=== PATIENT | female | born 1980 | race American Indian/Alaskan Native ===

== ENCOUNTER 2019-06-20 09:46 | Emergency (ER) | payer MEDICAID ==
[2019-06-20 09:52] VITALS: BP 118/65
--- NOTE | 2019-06-20 10:42 | Emergency Department Report ---
Minor Respiratory - HPI Chief Complaint: Upper Respiratory Infection Stated Complaint: FLU SYM, 28 WKS PREG Time Seen by Provider: 06/20/19 10:25 Duration: 1 Day Severity: mild Minor Respiratory: Yes Rhinorrhea, Yes Able to Tolerate Fluids, Yes Cough, Yes Sick Contacts (son with Inf A), Yes Fever, No Sore Throat, No Ear Pain, No Hemoptysis, No Chest Pain, No Shortness of Breath Other History: This is a 38-year-old female at 28 weeks gestation and presents to ED complaining of flulike symptoms and exposure with son who was diagnosed yesterday at the hand stapler for type a is a virus. Patient states that she did not received a flu vaccination this season. She is followed by [facility] and receives care. Patient was seen this morning by her the OBGYN ED Review of Systems ROS: Stated complaint: FLU SYM, 28 WKS PREG Other details as noted in HPI Comment: All other systems reviewed and negative ED Past Medical Hx - Past Medical History Hx Hypertension: No Hx Congestive Heart Failure: No Hx Diabetes: No Hx Deep Vein Thrombosis: No Hx Renal Disease: No Hx Sickle Cell Disease: No Hx Seizures: No Hx Asthma: No Hx COPD: No Hx HIV: No - Social History Smoking Status: Never Smoker - Medications Home Medications: Home Medications Medication Instructions Recorded Confirmed Last Taken Type Pnv,Calcium 72/Iron/Folic Acid 1 tab PO DAILY 07/31/13 08/10/13 08/09/13 History [Pnv Plus Multivit Tab] Oseltamivir [Tamiflu] 75 mg PO QDAY #7 capsule 06/20/19 Unknown Rx Minor Respiratory Exam - Exam General: Vital signs noted. No distress. Alert and acting appropriately. HEENT: Yes Moist Mucous Membranes, No Pharyngeal Erythema, No Pharyngeal Exudates, No Rhinorrhea, No Conjuctival Injection, No Frontal Tenderness, No Maxillary Tenderness Ear: Neither TM Bulge, Neither TM Erythema, Neither EAC Pain, Neither EAC Discharge Neck: Yes Supple, No Adenopathy Lungs: Yes Good Air Exchange, No Wheezes, No Ronchi, No Stridor, No Cough, No Labored Respirations, No Retractions, No Use of Accessory Muscles, No Other Abnormal Lung Sounds Heart: Yes Regular, No Murmur Abdomen: Yes Normal Bowel Sounds, No Tenderness, No Peritoneal Signs Skin: No Rash, No Edema Neurologic: Alert and oriented, no deficits. Musculoskeletal: Unremarkable. ED Course Vital Signs 06/20/19 09:50 Temperature 100.0 F H Pulse Rate 113 H Respiratory 16 Rate Blood Pressure 118/65 O2 Sat by Pulse 99 Oximetry ED Medical Decision Making - Medical Decision Making 38-year-old female presents with flulike symptoms. Patient will be treated with Tamiflu. Patient did see her [facility] this morning and was cleared. Vital signs are normalized patient is in no acute distress. Discussed Tylenol every 6 hours for fever and Tylenol products for cold and flu. Critical care attestation.: If time is entered above; I have spent that time in minutes in the direct care of this critically ill patient, excluding procedure time. ED Disposition Clinical Impression: Flu-like symptoms, Viral syndrome Disposition: TO HOME OR SELFCARE Is pt being admited?: No Does the pt Need Aspirin: No Condition: Stable Instructions: Viral Syndrome (ED) Additional Instructions: Make sure to follow up with the [facility] as discussed. Take all your medications as you've been prescribed. If you have any worsening symptoms or develop new symptoms please return to ED immediately. Prescriptions: Oseltamivir [Tamiflu] 75 mg PO QDAY #7 capsule Referrals: PRIMARY CARE, [Primary Care Provider] - 3-5 Days Forms: Work/School Release Form(ED) Time of Disposition: 10:48
== END 2019-06-20 11:24 | disposition home or self-care (01) ==
LOC: ED 09:46
DX: O99.513 Diseases of the respiratory system complicating pregnancy, third trimester (principal); J11.1 Influenza due to unidentified influenza virus with other respiratory manifestations; B34.9 Viral infection, unspecified; Z3A.28 28 weeks gestation of pregnancy
CPT/HCPCS: 99282

== ENCOUNTER 2019-08-08 10:41 | Inpatient (IN) | payer MEDICAID ==
[2019-08-08] MEDS: BETAMET ACET/BETAMET NA PH 6 MG/ML INJ 5 ML MDV IM SCH (14:00)
[2019-08-08] MEDS ORDERED: ACETAMINOPHEN 325 MG TAB PO PRN (16:52)
[2019-08-08] MEDS ORDERED: DOCUSATE SODIUM 100 MG CAP PO PRN (16:52)
--- NOTE | 2019-08-08 17:18 | History and Physical Report ---
History of Present Illness Date of examination: 08/08/19 Date of admission: 08/08/2019 Chief complaint: Sent from [facility] for continuous monitoring and administration of steroids History of present illness: 39 yo G 2 P 1 0 0 1 @ 35 weeks 1 day here from [facility] for prolonged monitoring and administration of corticosteroids. She was evaluated today and had a BPP of 8/10 and NR NST. She is a [facility] patient who initiated care at 19 weeks gestation. Her care is co-managed [facility] secondary to AMA, +NIPT for Trisomy 21 and cardiac defects. She was referred to [facility] for consultation. Her care has also been complicated by late entry to care, anemia (on iron therapy) and vitamin D deficiency (was supplemented). LABS: O pos, Antibody Screen neg, RI, VDRL NR, HBsAg neg, HIV neg, GC/CT/Trich neg, , HSV II neg, MSAFP neg OSB, Diabetes Screen 116, GBS done (result pending). Past History Past Medical History: other (blood transfusion) [employer] History: trichomonas, other (endometriosis) Family/Genetic History: none Social history: single, lives with family, full code. denies: smoking, alcohol abuse, prescription drug abuse, IV drug use - Obstetrical History Expected Date of Delivery: 09/11/19 Actual Gestation: 35 Week(s) 1 Day(s) : 2 Para: 1 Hx # Term Pregnancies: 0 Number of Pregnancies: 0 Spontaneous Abortions: 0 Induced : 0 Number of Living Children: 1 #1 Infant Gender: Male year: 2,014 (08/10/2011) Birthweight: 2.693 kg ((5 lbs 16 oz)) Method of Delivery: Vaginal Complications: none Medications and Allergies Allergies Allergy/AdvReac Type Severity Reaction Status Date / Time No Known Allergies Allergy Verified 08/07/13 19:36 Home Medications Medication Instructions Recorded Confirmed Last Taken Type Pnv,Calcium 72/Iron/Folic Acid 1 tab PO DAILY 07/31/13 08/10/13 08/09/13 History [Pnv Plus Multivit Tab] Oseltamivir [Tamiflu] 75 mg PO QDAY #7 capsule 06/20/19 Unknown Rx Active Meds: Active Medications Acetaminophen (Tylenol) 650 mg PO Q4H PRN PRN Reason: Pain MILD(1-3)/Fever >100.5/HUSSEIN Betamethasone Acet/Betameth SodPhos (Celestone Soluspan) 12 mg IM Q24HR TERA Stop: 08/09/19 10:01 Last Admin: 08/08/19 14:00 Dose: 12 mg Documented by: Docusate Sodium (Colace) 100 mg PO Q12H PRN PRN Reason: Constipation Multivitamins/Iron/Calcium ( Vitamin) 1 each PO QDAY TERA Review of Systems All systems: negative - Vital Signs Vital signs: Vital Signs Pulse Pulse Ox 79 97 08/08/19 11:01 08/08/19 11:01 Temp Pulse Resp BP Pulse Ox 98.4 F 110 H 14 133/67 96 08/08/19 11:20 08/08/19 17:05 08/08/19 11:20 08/08/19 16:36 08/08/19 17:05 - Obstetrical FHR: category 2 FHR comments: baseline 135, moderate variability with periods of prolonged minimal to absent variability, 10x10 accels, no decels Uterine Contraction Monitor Mode: External Uterine Contraction Pattern: Absent Results All other labs normal. Assessment and Plan - Patient Problems (1) 35 weeks gestation of Current Visit: Yes Status: Acute (2) Abnormal test Current Visit: Yes Status: Acute Plan to address problem: Admit to L&D for 23-hour Observation Continuous EFM Celestone series initiated Anticipate discharge 08/09/19 after second dose of Celestone and patient to f/u with [facility] on 08/12/2019 (3) IUGR (intrauterine growth restriction) affecting care of mother Current Visit: Yes Status: Acute Qualifiers: Fetus number: single or unspecified fetus Trimester: third trimester Qualified Code(s): O36.5930 - Maternal care for other known or suspected poor growth, third trimester, not applicable or unspecified Plan to address problem: EFW at 2104 grams on 08/07/19 per [facility] report (4) Advanced maternal age in multigravida Current Visit: Yes Status: Acute Qualifiers: Trimester: third trimester Qualified Code(s): O09.523 - Supervision of elderly multigravida, third trimester (5) heart defect Current Visit: Yes Status: Acute Plan to address problem: Large VSD - s/p [facility] Neonatology consult initiated - spoke with Buffy Rivera NNP
--- NOTE | 2019-08-08 18:38 | Consultation ---
Consult Note - Parent Education I met with parent(s) and discussed the following:: Need for NICU admission, Poss ible need for intubation and surfactant or other resp support, Temperature regulation, Possible need for IV fluids/TPN and IV antibiotics, Possible need for umbilical lines, Importance of providing breast milk & encouraged pumping aft delivery (interest in EBM), Slow feeding advancement and monitoring of tolerance. NG/OG feeds, Need to monitor for jaundice, Data for survival & survival without significant co-morbidities Parent(s) demonstrated understanding of all the information:: Yes Assessment and Plan - Assessment Gestation:: 35 Estimated Weight: N/A Baby's gender: Female Baby's name: Kasey Additional Comment: 39 yo @ 35 weeks 1 day. BPP of 01/04 and NR NST. Rec'd x1 beta. Her care is co-managed [facility] secondary to AMA, +NIPT for Trisomy 21 and cardiac defects. She was referred to [facility] for consultation (large inlet VSD and triuspid regurguritation). Mother expressed understanding that an echo will be done within 24 hrs after delivery. - Plan Plan: Agree with Mag & steroids Will attend delivery Will plan for an echocardiogram with [facility] within 24 hrs after delivery. Please call NICU with questions
[2019-08-08 21:43] LABS: Basophils % (Auto) 0.1 % (0.0-1.8); Eosinophils % (Auto) 0.1 % (0.0-4.3); Hematocrit 35.6 % (30.3-42.9); Lymphocytes # (Auto) 1.1 K/mm3 (1.2-5.4); Lymphocytes % (Auto) 11.6 % (13.4-35.0); Mean Corpuscular HGB Conc 34 % (30-34); Mean Corpuscular Volume 93 fl (79-97); Monocytes # (Auto) 0.2 K/mm3 (0.0-0.8); Monocytes % (Auto) 1.9 % (0.0-7.3); Platelet Count 355 K/mm3 (140-440); Red Blood Count 3.85 M/mm3 (3.65-5.03); Red Cell Distribution Width 13.3 % (13.2-15.2)
--- NOTE | 2019-08-09 12:07 | Progress Note ---
Assessment and Plan A: at 35 2/7 weeks gestation. P: Patient to receive second dose of Celestone as scheduled this afternoon. Continue EFM. Will consult with Dr. Hand re: this patient. Subjective - Subjective Date of service: 08/09/19 Principal diagnosis: at 35 2/7 weeks gestation Interval history: 35 2/7 weeks gestation on continuous EFM due to deceleration and minimal variability seen at [facility] office yesterday. Patient is due to have her second dose of Celestone in a few hours. Patient reports active movement. She denies contractions, LOF, or VB. Patient reports: movement normal, no new complaints, no loss of fluid, no vaginal bleeding, no contractions Objective - Vital Signs Vital Signs: Vital Signs - 12hr 08/09/19 08/09/19 08/09/19 00:08 00:13 00:18 Temperature Pulse Rate 91 H 89 90 Respiratory Rate Blood Pressure O2 Sat by Pulse 98 96 97 Oximetry 08/09/19 08/09/19 08/09/19 00:23 00:26 00:28 Temperature Pulse Rate 99 H 117 H 97 H Respiratory Rate Blood Pressure O2 Sat by Pulse 95 91 97 Oximetry 08/09/19 08/09/19 08/09/19 00:33 00:36 00:38 Temperature Pulse Rate 88 88 89 Respiratory Rate Blood Pressure 126/61 O2 Sat by Pulse 96 96 Oximetry 08/09/19 08/09/19 08/09/19 00:43 00:48 00:49 Temperature Pulse Rate 91 H 92 H 92 H Respiratory Rate Blood Pressure O2 Sat by Pulse 95 94 95 Oximetry 08/09/19 08/09/19 08/09/19 00:54 00:59 01:04 Temperature Pulse Rate 95 H 100 H 102 H Respiratory Rate Blood Pressure O2 Sat by Pulse 95 96 97 Oximetry 08/09/19 08/09/19 08/09/19 01:09 01:10 01:14 Temperature Pulse Rate 103 H 96 H 90 Respiratory Rate Blood Pressure O2 Sat by Pulse 97 93 97 Oximetry 08/09/19 08/09/19 08/09/19 01:19 01:24 01:29 Temperature Pulse Rate 98 H 110 H 94 H Respiratory Rate Blood Pressure O2 Sat by Pulse 97 96 95 Oximetry 08/09/19 08/09/19 08/09/19 01:34 01:36 01:39 Temperature Pulse Rate 92 H 92 H 94 H Respiratory Rate Blood Pressure 92/54 O2 Sat by Pulse 98 96 Oximetry 08/09/19 08/09/19 08/09/19 01:44 01:49 01:54 Temperature Pulse Rate 94 H 92 H 94 H Respiratory Rate Blood Pressure O2 Sat by Pulse 96 97 96 Oximetry 08/09/19 08/09/19 08/09/19 01:59 02:04 02:09 Temperature Pulse Rate 94 H 93 H 96 H Respiratory Rate Blood Pressure O2 Sat by Pulse 96 96 97 Oximetry 08/09/19 08/09/19 08/09/19 02:14 02:16 02:19 Temperature Pulse Rate 87 90 96 H Respiratory Rate Blood Pressure O2 Sat by Pulse 96 94 95 Oximetry 08/09/19 08/09/19 08/09/19 02:22 02:24 02:27 Temperature Pulse Rate 94 H 86 98 H Respiratory Rate Blood Pressure O2 Sat by Pulse 94 94 94 Oximetry 08/09/19 08/09/19 08/09/19 02:29 02:34 02:36 Temperature Pulse Rate 99 H 88 93 H Respiratory Rate Blood Pressure 112/59 O2 Sat by Pulse 96 96 Oximetry 08/09/19 08/09/19 08/09/19 02:39 02:44 02:49 Temperature Pulse Rate 89 90 94 H Respiratory Rate Blood Pressure O2 Sat by Pulse 96 96 95 Oximetry 08/09/19 08/09/19 08/09/19 02:50 02:54 02:55 Temperature Pulse Rate 89 90 93 H Respiratory Rate Blood Pressure O2 Sat by Pulse 93 93 94 Oximetry 08/09/19 08/09/19 08/09/19 02:59 03:04 03:09 Temperature Pulse Rate 98 H 102 H 99 H Respiratory Rate Blood Pressure O2 Sat by Pulse 98 95 96 Oximetry 08/09/19 08/09/19 08/09/19 03:14 03:19 03:24 Temperature Pulse Rate 99 H 91 H 95 H Respiratory Rate Blood Pressure O2 Sat by Pulse 96 96 95 Oximetry 08/09/19 08/09/19 08/09/19 03:29 03:30 03:34 Temperature Pulse Rate 99 H 93 H 98 H Respiratory Rate Blood Pressure O2 Sat by Pulse 96 94 96 Oximetry 08/09/19 08/09/19 08/09/19 03:36 03:39 03:44 Temperature Pulse Rate 102 H 98 H 107 H Respiratory Rate Blood Pressure 117/69 O2 Sat by Pulse 95 96 Oximetry 08/09/19 08/09/19 08/09/19 03:49 03:54 03:59 Temperature Pulse Rate 91 H 94 H 93 H Respiratory Rate Blood Pressure O2 Sat by Pulse 97 96 96 Oximetry 08/09/19 08/09/19 08/09/19 04:04 04:09 04:14 Temperature Pulse Rate 88 98 H 100 H Respiratory Rate Blood Pressure O2 Sat by Pulse 96 96 96 Oximetry 08/09/19 08/09/19 08/09/19 04:19 04:22 04:24 Temperature Pulse Rate 98 H 89 99 H Respiratory Rate Blood Pressure O2 Sat by Pulse 96 94 95 Oximetry 08/09/19 08/09/19 08/09/19 04:27 04:29 04:33 Temperature Pulse Rate 107 H 90 89 Respiratory Rate Blood Pressure O2 Sat by Pulse 94 95 93 Oximetry 08/09/19 08/09/19 08/09/19 04:34 04:38 04:39 Temperature Pulse Rate 98 H 96 H 105 H Respiratory Rate Blood Pressure 127/73 O2 Sat by Pulse 94 97 Oximetry 08/09/19 08/09/19 08/09/19 04:52 04:57 05:02 Temperature Pulse Rate 52 L 98 H 98 H Respiratory Rate Blood Pressure O2 Sat by Pulse 96 96 96 Oximetry 08/09/19 08/09/19 08/09/19 05:07 05:12 05:17 Temperature Pulse Rate 90 95 H 96 H Respiratory Rate Blood Pressure O2 Sat by Pulse 96 96 96 Oximetry 08/09/19 08/09/19 08/09/19 05:22 05:27 05:32 Temperature Pulse Rate 89 91 H 98 H Respiratory Rate Blood Pressure O2 Sat by Pulse 97 96 96 Oximetry 08/09/19 08/09/19 08/09/19 05:36 05:37 05:41 Temperature Pulse Rate 86 91 H 86 Respiratory Rate Blood Pressure 95/48 O2 Sat by Pulse 96 94 Oximetry 08/09/19 08/09/19 08/09/19 05:42 05:50 05:55 Temperature Pulse Rate 95 H 100 H 84 Respiratory Rate Blood Pressure O2 Sat by Pulse 95 97 97 Oximetry 08/09/19 08/09/19 08/09/19 06:00 06:05 06:10 Temperature Pulse Rate 91 H 85 89 Respiratory Rate Blood Pressure O2 Sat by Pulse 95 96 98 Oximetry 08/09/19 08/09/19 08/09/19 06:12 06:15 06:17 Temperature Pulse Rate 87 91 H 87 Respiratory Rate Blood Pressure O2 Sat by Pulse 94 95 94 Oximetry 08/09/19 08/09/19 08/09/19 06:20 06:25 06:26 Temperature Pulse Rate 89 85 84 Respiratory Rate Blood Pressure O2 Sat by Pulse 94 93 93 Oximetry 08/09/19 08/09/19 08/09/19 06:30 06:31 06:35 Temperature Pulse Rate 82 83 85 Respiratory Rate Blood Pressure O2 Sat by Pulse 95 94 95 Oximetry 08/09/19 08/09/19 08/09/19 06:36 06:37 06:40 Temperature Pulse Rate 82 86 91 H Respiratory Rate Blood Pressure 115/56 O2 Sat by Pulse 93 95 Oximetry 08/09/19 08/09/19 08/09/19 06:42 06:45 06:50 Temperature Pulse Rate 81 95 H 91 H Respiratory Rate Blood Pressure O2 Sat by Pulse 94 97 96 Oximetry 08/09/19 08/09/19 08/09/19 06:55 06:57 07:00 Temperature Pulse Rate 99 H 99 H 95 H Respiratory Rate Blood Pressure O2 Sat by Pulse 95 94 96 Oximetry 08/09/19 08/09/19 08/09/19 07:04 07:05 07:10 Temperature Pulse Rate 98 H 89 93 H Respiratory Rate Blood Pressure O2 Sat by Pulse 94 94 95 Oximetry 08/09/19 08/09/19 08/09/19 07:15 07:20 07:25 Temperature Pulse Rate 91 H 81 90 Respiratory Rate Blood Pressure O2 Sat by Pulse 96 95 95 Oximetry 08/09/19 08/09/19 08/09/19 07:30 07:35 07:36 Temperature Pulse Rate 89 100 H 86 Respiratory Rate Blood Pressure 100/58 O2 Sat by Pulse 95 95 Oximetry 08/09/19 08/09/19 08/09/19 07:51 07:56 08:01 Temperature Pulse Rate 83 89 89 Respiratory Rate Blood Pressure O2 Sat by Pulse 98 97 96 Oximetry 08/09/19 08/09/19 08/09/19 08:05 08:06 08:11 Temperature 98.2 F Pulse Rate 85 92 H Respiratory 14 Rate Blood Pressure O2 Sat by Pulse 96 96 96 Oximetry 08/09/19 08/09/19 08/09/19 08:16 08:21 08:26 Temperature Pulse Rate 97 H 86 90 Respiratory Rate Blood Pressure O2 Sat by Pulse 96 98 97 Oximetry 08/09/19 08/09/19 08/09/19 08:36 09:40 09:45 Temperature Pulse Rate 97 H 59 L 96 H Respiratory Rate Blood Pressure 111/72 O2 Sat by Pulse 96 96 Oximetry 08/09/19 08/09/19 08/09/19 09:50 09:55 10:00 Temperature Pulse Rate 98 H 94 H 98 H Respiratory Rate Blood Pressure O2 Sat by Pulse 98 97 97 Oximetry 08/09/19 08/09/19 08/09/19 10:05 10:59 11:00 Temperature Pulse Rate 101 H 98 H 106 H Respiratory Rate Blood Pressure 113/67 O2 Sat by Pulse 96 97 Oximetry 08/09/19 08/09/19 08/09/19 11:04 11:09 11:14 Temperature Pulse Rate 95 H 99 H 113 H Respiratory Rate Blood Pressure O2 Sat by Pulse 96 95 96 Oximetry 08/09/19 08/09/19 08/09/19 11:19 11:24 11:26 Temperature Pulse Rate 94 H 95 H 96 H Respiratory Rate Blood Pressure O2 Sat by Pulse 95 95 94 Oximetry 08/09/19 08/09/19 08/09/19 11:29 11:31 11:34 Temperature Pulse Rate 92 H 92 H 91 H Respiratory Rate Blood Pressure O2 Sat by Pulse 95 94 94 Oximetry 08/09/19 08/09/19 08/09/19 11:36 11:39 11:44 Temperature Pulse Rate 93 H 107 H 109 H Respiratory Rate Blood Pressure 111/76 O2 Sat by Pulse 94 96 99 Oximetry 08/09/19 08/09/19 08/09/19 11:49 11:54 11:59 Temperature Pulse Rate 94 H 96 H 98 H Respiratory Rate Blood Pressure O2 Sat by Pulse 97 98 98 Oximetry - Exam Abdomen: Present: normal appearance, soft. Absent: distention, tenderness, guarding, rigidity Uterus: Present: normal, fundal height above umbilicus. Absent: tenderness FHR: category 1 Uterine Contraction Monitor Mode: External Uterine Contraction Pattern: Absent Extremities: normal - Labs Labs: Abnormal Labs 08/08/19 20:44 Lymph % (Auto) 11.6 L Lymph # 1.1 L Seg Neutrophils % 86.3 H Seg Neutrophils # 7.9 H Laboratory Results - last 24 hr 08/08/19 08/08/19 20:44 20:45 WBC 9.1 RBC 3.85 Hgb 12.0 Hct 35.6 MCV 93 MCH 31 MCHC 34 RDW 13.3 Plt Count 355 Lymph % (Auto) 11.6 L [place] % (Auto) 1.9 Eos % (Auto) 0.1 Baso % (Auto) 0.1 Lymph # 1.1 L [place] # 0.2 Eos # 0.0 Baso # 0.0 Seg Neutrophils % 86.3 H Seg Neutrophils # 7.9 H Blood Type O POSITIVE Antibody Screen Negative
[2019-08-09] MEDS: BETAMET ACET/BETAMET NA PH 6 MG/ML INJ 5 ML MDV IM SCH (13:48)
[2019-08-09] MEDS: PRENATAL VIT27-FE FUMARATE-FOLIC ACID VIT TAB PO SCH (13:49)
[2019-08-10] MEDS: PRENATAL VIT27-FE FUMARATE-FOLIC ACID VIT TAB PO SCH (10:19)
--- NOTE | 2019-08-10 12:50 | Progress Note ---
Assessment and Plan A: at 35 weeks, 3 days gestation. FHR deceleration. cardiac defects. P: Consulted with Dr. Hand re: this patient earlier this AM. Dr. Hand states to call [facility]. Called [facility] and spoke with Dr. Hector. Dr. Hector states to continue EFM (continuous) and to do twice weekly BPP. He states patient is to remain here in L&D. BPP ordered. Informed patient re: this plan of care. Subjective - Subjective Date of service: 08/10/19 Principal diagnosis: at 35 3/7 weeks gestation Interval history: 35 3/7 weeks gestation on continuous EFM due to deceleration and minimal variability seen at [facility] office. Patient reports active movement. She denies contractions, LOF, or VB. Patient has received course of [place] for FLM. Patient had a few spontaneous FHR decelerations overnight. Overall has normal b aseline FHR with moderate variability and accelerations throughout the night and this AM. Patient reports: movement normal, no new complaints, no loss of fluid, no vaginal bleeding, no contractions Objective - Vital Signs Vital Signs: Vital Signs - 12hr 08/10/19 08/10/19 08/10/19 00:50 00:55 00:56 Temperature Pulse Rate 94 H 90 91 H Respiratory Rate Blood Pressure O2 Sat by Pulse 96 95 94 Oximetry 08/10/19 08/10/19 08/10/19 01:00 01:02 01:05 Temperature Pulse Rate 86 88 88 Respiratory Rate Blood Pressure O2 Sat by Pulse 94 94 94 Oximetry 08/10/19 08/10/19 08/10/19 01:09 01:10 01:15 Temperature Pulse Rate 102 H 94 H 91 H Respiratory Rate Blood Pressure O2 Sat by Pulse 94 96 95 Oximetry 08/10/19 08/10/19 08/10/19 01:20 01:25 01:30 Temperature Pulse Rate 89 84 85 Respiratory Rate Blood Pressure O2 Sat by Pulse 97 96 97 Oximetry 08/10/19 08/10/19 08/10/19 01:35 01:36 01:39 Temperature Pulse Rate 85 85 94 H Respiratory Rate Blood Pressure 99/63 O2 Sat by Pulse 96 94 Oximetry 08/10/19 08/10/19 08/10/19 01:40 01:47 01:48 Temperature Pulse Rate 97 H 90 87 Respiratory Rate Blood Pressure O2 Sat by Pulse 94 0 L 97 Oximetry 08/10/19 08/10/19 08/10/19 01:53 01:58 02:03 Temperature Pulse Rate 108 H 109 H 109 H Respiratory Rate Blood Pressure O2 Sat by Pulse 97 97 97 Oximetry 08/10/19 08/10/19 08/10/19 02:07 02:08 02:13 Temperature Pulse Rate 104 H 102 H 97 H Respiratory Rate Blood Pressure O2 Sat by Pulse 94 95 95 Oximetry 08/10/19 08/10/19 08/10/19 02:16 02:18 02:22 Temperature Pulse Rate 95 H 95 H 93 H Respiratory Rate Blood Pressure O2 Sat by Pulse 94 94 94 Oximetry 08/10/19 08/10/19 08/10/19 02:23 02:28 02:33 Temperature Pulse Rate 94 H 94 H 95 H Respiratory Rate Blood Pressure O2 Sat by Pulse 94 94 94 Oximetry 08/10/19 08/10/19 08/10/19 02:36 02:38 02:43 Temperature Pulse Rate 104 H 107 H 96 H Respiratory Rate Blood Pressure 109/66 O2 Sat by Pulse 95 96 Oximetry 08/10/19 08/10/19 08/10/19 02:48 02:49 02:53 Temperature Pulse Rate 100 H 98 H 98 H Respiratory Rate Blood Pressure O2 Sat by Pulse 97 94 92 Oximetry 08/10/19 08/10/19 08/10/19 02:58 03:03 03:08 Temperature Pulse Rate 94 H 102 H 94 H Respiratory Rate Blood Pressure O2 Sat by Pulse 94 95 98 Oximetry 08/10/19 08/10/19 08/10/19 03:13 03:18 03:23 Temperature Pulse Rate 97 H 98 H 92 H Respiratory Rate Blood Pressure O2 Sat by Pulse 99 98 99 Oximetry 08/10/19 08/10/19 08/10/19 03:28 03:30 03:33 Temperature Pulse Rate 101 H 101 H 87 Respiratory Rate Blood Pressure O2 Sat by Pulse 97 94 98 Oximetry 08/10/19 08/10/19 08/10/19 03:44 03:49 03:54 Temperature Pulse Rate 86 94 H 87 Respiratory Rate Blood Pressure O2 Sat by Pulse 98 97 97 Oximetry 08/10/19 08/10/19 08/10/19 03:59 04:04 04:09 Temperature Pulse Rate 90 90 90 Respiratory Rate Blood Pressure O2 Sat by Pulse 97 98 98 Oximetry 08/10/19 08/10/19 08/10/19 04:14 04:19 04:24 Temperature Pulse Rate 88 84 90 Respiratory Rate Blood Pressure O2 Sat by Pulse 97 98 98 Oximetry 08/10/19 08/10/19 08/10/19 04:29 04:34 04:36 Temperature Pulse Rate 87 88 85 Respiratory Rate Blood Pressure 97/56 O2 Sat by Pulse 98 98 Oximetry 08/10/19 08/10/19 08/10/19 04:39 04:44 04:49 Temperature Pulse Rate 85 90 83 Respiratory Rate Blood Pressure O2 Sat by Pulse 98 98 94 Oximetry 08/10/19 08/10/19 08/10/19 04:50 04:54 04:56 Temperature Pulse Rate 93 H 87 86 Respiratory Rate Blood Pressure O2 Sat by Pulse 94 95 94 Oximetry 08/10/19 08/10/19 08/10/19 04:59 05:04 05:09 Temperature Pulse Rate 86 82 79 Respiratory Rate Blood Pressure O2 Sat by Pulse 94 92 91 Oximetry 08/10/19 08/10/19 08/10/19 05:14 05:19 05:24 Temperature Pulse Rate 86 83 87 Respiratory Rate Blood Pressure O2 Sat by Pulse 96 98 97 Oximetry 08/10/19 08/10/19 08/10/19 05:29 05:34 05:37 Temperature Pulse Rate 90 92 H 96 H Respiratory Rate Blood Pressure 109/62 O2 Sat by Pulse 96 96 Oximetry 08/10/19 08/10/19 08/10/19 05:39 05:44 05:46 Temperature Pulse Rate 92 H 91 H 87 Respiratory Rate Blood Pressure O2 Sat by Pulse 95 95 94 Oximetry 08/10/19 08/10/19 08/10/19 05:49 05:51 05:54 Temperature Pulse Rate 88 95 H 91 H Respiratory Rate Blood Pressure O2 Sat by Pulse 92 94 93 Oximetry 08/10/19 08/10/19 08/10/19 05:59 06:04 06:07 Temperature Pulse Rate 90 92 H 89 Respiratory Rate Blood Pressure O2 Sat by Pulse 96 95 94 Oximetry 08/10/19 08/10/19 08/10/19 06:09 06:12 06:14 Temperature Pulse Rate 85 89 93 H Respiratory Rate Blood Pressure O2 Sat by Pulse 95 94 95 Oximetry 08/10/19 08/10/19 08/10/19 06:19 06:24 06:29 Temperature Pulse Rate 95 H 92 H 84 Respiratory Rate Blood Pressure O2 Sat by Pulse 93 98 98 Oximetry 08/10/19 08/10/19 08/10/19 06:34 06:36 06:39 Temperature Pulse Rate 84 79 114 H Respiratory Rate Blood Pressure 108/59 O2 Sat by Pulse 98 97 Oximetry 08/10/19 08/10/19 08/10/19 06:44 06:49 06:54 Temperature Pulse Rate 88 101 H 92 H Respiratory Rate Blood Pressure O2 Sat by Pulse 100 98 98 Oximetry 08/10/19 08/10/19 08/10/19 06:59 07:04 07:09 Temperature Pulse Rate 91 H 88 94 H Respiratory Rate Blood Pressure O2 Sat by Pulse 99 98 100 Oximetry 08/10/19 08/10/19 08/10/19 07:14 07:19 07:24 Temperature Pulse Rate 79 77 81 Respiratory Rate Blood Pressure O2 Sat by Pulse 96 96 99 Oximetry 08/10/19 08/10/19 08/10/19 07:29 07:34 07:36 Temperature Pulse Rate 85 78 79 Respiratory Rate Blood Pressure 113/57 O2 Sat by Pulse 100 99 Oximetry 08/10/19 08/10/19 08/10/19 07:39 07:44 07:49 Temperature 97.9 F Pulse Rate 101 H 97 H 100 H Respiratory 14 Rate Blood Pressure O2 Sat by Pulse 97 97 97 Oximetry 08/10/19 08/10/19 08/10/19 07:54 07:59 08:04 Temperature Pulse Rate 99 H 100 H 90 Respiratory Rate Blood Pressure O2 Sat by Pulse 98 98 95 Oximetry 08/10/19 08/10/19 08/10/19 08:09 08:14 08:19 Temperature Pulse Rate 84 95 H 107 H Respiratory Rate Blood Pressure O2 Sat by Pulse 95 95 98 Oximetry 08/10/19 08/10/19 08/10/19 08:24 08:29 08:31 Temperature Pulse Rate 101 H 97 H 87 Respiratory Rate Blood Pressure O2 Sat by Pulse 97 96 94 Oximetry 08/10/19 08/10/19 08/10/19 08:34 08:36 08:39 Temperature Pulse Rate 88 92 H 85 Respiratory Rate Blood Pressure 112/64 O2 Sat by Pulse 94 95 Oximetry 08/10/19 08/10/19 08/10/19 08:43 08:44 08:48 Temperature Pulse Rate 84 84 87 Respiratory Rate Blood Pressure O2 Sat by Pulse 94 95 94 Oximetry 08/10/19 08/10/19 08/10/19 08:49 08:54 08:59 Temperature Pulse Rate 84 85 92 H Respiratory Rate Blood Pressure O2 Sat by Pulse 96 94 95 Oximetry 08/10/19 08/10/19 08/10/19 09:02 09:04 09:09 Temperature Pulse Rate 91 H 86 92 H Respiratory Rate Blood Pressure O2 Sat by Pulse 94 94 94 Oximetry 08/10/19 08/10/19 08/10/19 09:11 09:14 09:19 Temperature Pulse Rate 90 89 92 H Respiratory Rate Blood Pressure O2 Sat by Pulse 94 94 90 Oximetry 08/10/19 08/10/19 08/10/19 09:23 09:24 09:29 Temperature Pulse Rate 81 89 89 Respiratory Rate Blood Pressure O2 Sat by Pulse 94 91 91 Oximetry 08/10/19 08/10/19 08/10/19 09:33 09:34 09:36 Temperature Pulse Rate 78 84 81 Respiratory Rate Blood Pressure 100/56 O2 Sat by Pulse 94 95 Oximetry 08/10/19 08/10/19 08/10/19 09:38 09:39 09:44 Temperature Pulse Rate 79 83 91 H Respiratory Rate Blood Pressure O2 Sat by Pulse 94 95 94 Oximetry 08/10/19 08/10/19 08/10/19 09:49 09:54 09:57 Temperature Pulse Rate 85 86 84 Respiratory Rate Blood Pressure O2 Sat by Pulse 94 96 94 Oximetry 08/10/19 08/10/19 08/10/19 09:59 10:04 10:09 Temperature Pulse Rate 85 91 H 87 Respiratory Rate Blood Pressure O2 Sat by Pulse 95 94 94 Oximetry 08/10/19 08/10/19 08/10/19 10:14 10:19 11:20 Temperature Pulse Rate 87 95 H 90 Respiratory Rate Blood Pressure O2 Sat by Pulse 95 97 95 Oximetry 08/10/19 08/10/19 08/10/19 11:25 11:30 11:36 Temperature Pulse Rate 93 H 94 H 109 H Respiratory Rate Blood Pressure 118/59 O2 Sat by Pulse 95 95 Oximetry 08/10/19 08/10/19 08/10/19 11:48 11:53 11:58 Temperature Pulse Rate 97 H 92 H 91 H Respiratory Rate Blood Pressure O2 Sat by Pulse 96 95 97 Oximetry 08/10/19 08/10/19 08/10/19 12:03 12:13 12:18 Temperature Pulse Rate 94 H 86 92 H Respiratory Rate Blood Pressure O2 Sat by Pulse 96 98 96 Oximetry 08/10/19 08/10/19 08/10/19 12:23 12:28 12:30 Temperature Pulse Rate 102 H 91 H 90 Respiratory Rate Blood Pressure O2 Sat by Pulse 97 95 93 Oximetry 08/10/19 12:40 Temperature Pulse Rate 94 H Respiratory Rate Blood Pressure O2 Sat by Pulse 97 Oximetry - Exam Abdomen: Present: soft. Absent: distention, tenderness, guarding, rigidity Uterus: Present: fundal height above umbilicus. Absent: tenderness FHR: category 2 Uterine Contraction Monitor Mode: External Uterine Contraction Pattern: Absent Extremities: normal - Labs Labs: Abnormal Labs 08/08/19 20:44 Lymph % (Auto) 11.6 L Lymph # 1.1 L Seg Neutrophils % 86.3 H Seg Neutrophils # 7.9 H
[2019-08-10] MEDS ORDERED: LACTATED RINGERS 1,000 ML ONE (13:13)
--- NOTE | 2019-08-10 14:26 | Ultrasound Report ---
Biophysical profile INDICATION: well-being COMPARISON: None FINDINGS: breathing movement: 2/2 movement: 2/2 posture and tone: 2/2 Qualitative amniotic fluid volume: 2/2 IMPRESSION: Total score for biophysical profile is 8/8 heart rate is 145 bpm Signer Name: Nico Mora MD Signed: 08/10/2019 2:21 PM Workstation Name: [id number]
[2019-08-10] MEDS: FAMOTIDINE 20 MG TAB PO SCH ×2 (15:46→22:07)
--- NOTE | 2019-08-10 16:11 | Event Note ---
Date: 08/10/19 Several prolonged FHR decelerations noted (longest was 2.5 minutes). FHR normal baseline rate with moderate to minimal variability (and at times almost absent appearing variability). Called Dr. Hand re: patient and informed him of FHR tracing, all of the above. Recommended MD review FHR tracing. Dr. Hand states to consult [facility] re: timing of delivery. [facility] consult put into computer and [facility] notified.
--- NOTE | 2019-08-10 16:41 | Event Note ---
Date: 08/10/19 BPP 01/02.
[2019-08-10] MEDS: LACTATED RINGERS 1,000 ML IV SCH (18:29)
--- NOTE | 2019-08-10 19:42 | Event Note ---
Date: 08/10/[address] Hector and relayed his recommendation to Dr. Hand. Informed Dr. Hand of R tracing.
[2019-08-11] MEDS: LACTATED RINGERS 1,000 ML IV SCH (02:39)
--- NOTE | 2019-08-11 04:23 | Event Note ---
Date: 08/11/19 Prolonged deceleration of heart rate noted, which has now resolved. Variability minimal to moderate. Normal baseline heart rate. Patient is in lateral position with oxygen per face mask and IV fluid bolus. Called Dr. Hand and notified him of prolonged FHR deceleration (5-8 minutes) and informed him of interventions taken. Another deceleration occurred while on the phone with MD. Dr. Hand states to get patient ready for section. Informed patient and staff that Dr. Hand is coming in for section.
[2019-08-11] MEDS ORDERED: METOCLOPRAMIDE 10 MG/2 ML INJ IV ONE (04:41)
[2019-08-11] MEDS ORDERED: BICITRA ORAL LIQD 30ML PO ONE (04:41)
[2019-08-11] MEDS ORDERED: FAMOTIDINE 20 MG/2 ML INJ IV ONE ×2 (04:41→04:43)
[2019-08-11] MEDS ORDERED: METOCLOPRAMIDE 10 MG/2 ML INJ ONE (04:43)
[2019-08-11] MEDS ORDERED: ceFAZolin/Water 2 GM/20 ML 2 GM/20 ML SYRINGE IV ONE (04:43)
[2019-08-11] MEDS ORDERED: BICITRA ORAL LIQD 30ML ONE (04:43)
[2019-08-11] MEDS ORDERED: ceFAZolin/Water 2 GM/20 ML 2 GM/20 ML SYRINGE IV NR (05:00)
[2019-08-11] MEDS ORDERED: LACTATED RINGERS 1,000 ML IV SCH (05:00)
[2019-08-11] MEDS ORDERED: OXYTOCIN 20 UNIT/1000ML DRIP 20 UNITS/1,000 ML BAG IV SCH ×2 (05:00→07:00)
[2019-08-11] MEDS ORDERED: PHENYLEPHRINE/NS 1,000 MCG/10 ML SYRINGE (OR USE) IV ONE (05:17)
[2019-08-11] MEDS ORDERED: ONDANSETRON 4 MG/2 ML INJ ONE (05:17)
[2019-08-11] MEDS ORDERED: SODIUM CHLORIDE 0.9% 1000 ML 1,000 ML ONE (05:17)
[2019-08-11] MEDS ORDERED: ceFAZolin/STERILE WATER 2 GM/20 ML SYRINGE IV ONE (05:30)
[2019-08-11] MEDS ORDERED: WATER FOR IRRIG STERILE 1,500 ML BOTTLE IR ONE (05:45)
[2019-08-11] MEDS ORDERED: SODIUM CHLORIDE 0.9% IRR 1,500 ML BOTTLE IR ONE (05:45)
[2019-08-11] MEDS ORDERED: dexAMETHasone 20 MG/5 ML VIAL ONE (05:46)
[2019-08-11] MEDS ORDERED: diphenhydrAMINE 50 MG/ML VIAL ONE (05:46)
--- NOTE | 2019-08-11 06:13 | Anesthesia Day of Surgery ---
Anesthesia Day of Surgery - Day of Surgery Patient Examined: Yes Patient H&P Reviewed: Yes Patient is NPO: No (STAT C/s)
--- NOTE | 2019-08-11 06:13 | Anesthesia Consultation ---
Anesthesia Consult and Med Hx Date of service: 08/11/19 - Airway Anesthetic Teeth Evaluation: Good ROM Head & Neck: Adequate Mental/Hyoid Distance: Adequate Mallampati Class: Class II Intubation Access Assessment: Good - Pulmonary Exam CTA: Yes - Cardiac Exam Cardiac Exam: RRR - Pre-Operative Health Status ASA Pre-Surgery Classification: ASA2, Emergency Proposed Anesthetic Plan: Spinal - Pulmonary Hx Asthma: No COPD: No Hx Pneumonia: No - Cardiovascular System Hx Hypertension: No - Central Nervous System Hx Seizures: No Hx Psychiatric Problems: No - Endocrine Hx Renal Disease: No Hx End Stage Renal Disease: No Hx Hypothyroidism: No Hx Hyperthyroidism: No - Hematic Hx Anemia: No Hx Sickle Cell Disease: No - Other Systems Hx Alcohol Use: No
--- NOTE | 2019-08-11 06:15 | Progress Note ---
Spinal Anesthesia Block - Spinal Anesthesia Block Start Time: 05:03 Stop Time: 05:07 Performed by:: TORSTEN FLORES Procedure: Spinal anesthesia block is being performed for . H&P, labs have been reviewed. Patient's questions and concerns have been answered. Informed consent has been performed. Timeout has was performed. Patient in sitting position on side of bed. Sterile prep and drape was performed. 3 mL 1% lidocaine skin wheal at L 3-L 4. Needle introducer advanced. 25-gauge spinal needle advanced, clear CSF negative blood. Spinal dose was given. All needles removed. Patient tolerated procedure well.
[2019-08-11] MEDS ORDERED: KETOROLAC 30 MG/1 ML INJ ONE (06:17)
[2019-08-11] MEDS ORDERED: LANOLIN/ZINC/DIMETHICONE (LANSINOH) 7 GM TP PRN (06:17)
[2019-08-11] MEDS ORDERED: NALOXONE 0.4 MG/1 ML INJ IV PRN (06:17)
[2019-08-11] MEDS ORDERED: WITCH HAZEL/ GLYCERIN PAD TP PRN (06:17)
[2019-08-11] MEDS ORDERED: ONDANSETRON 4 MG/2 ML INJ IV PRN (06:19)
[2019-08-11] MEDS ORDERED: MAGNESIUM HYDROXIDE (MOM) ORAL LIQD UDC PO PRN (06:19)
[2019-08-11] MEDS ORDERED: SIMETHICONE 80 MG CHEW TAB PO PRN (06:19)
--- NOTE | 2019-08-11 06:21 | Procedure Note ---
OB Delivery Note - Delivery Date of Delivery: 08/11/19 Surgeon: MEGHNA LANDAVERDE Estimated blood loss: other (700 cc) - Section Preop diagnosis: nonreassuring FHR tracing Postop diagnosis: same section procedure: primary low transverse Disposition: PACU Complications: none Narrative: Indication: 39yo at 35w 3 days with NRFHT. Findings: Normal uterus, tubes and ovaries. Clear fluid. No nuchal cord but very thin cord. Baby weighed 3#12oz Procedure: Patient taken to the operating room and prepped and draped in the usual fashion. Pfannenstiel skin incision was made and carried down to the underlying fascia. Fascia was incised and the incision was extended bilatera lly. Rectus fascia dissected off the rectus muscle both superiorly and inferiorly. Peritoneum identified tented up and entered. Peritoneal incision extended superiorly and inferiorly with good visualization of the bladder. Bladder blade was placed. Uterine incision was made and the incision was extended bilaterally. The baby was delivered from in the typical vertex fashion. Baby bulb suctioned at the incision site and again after delivery. Cord was clamped and cut and handed off to waiting team. The placenta was delivered spontaneously. The uterus was exteriorized and cleared of all clots and debris. Uterine incision closed with 0 Vicryl in a running locked fashion followed by a second imbricating layer of 0 Vicryl. A few additional 0 Vicryl stitches were required and good hemostasis was noted. Her urine was clear. Uterus tubes and ovaries return to the abdominal cavity. Gutters were cleared of all clots and debris and the pelvis was well irrigated. Good hemostasis noted. Interceed placed over the uterine incision and over the lower uterine segment in the midline. Attention was turned to the rectus fascia which was reapproximated with 0 Vicryl in a running fashion. Subcutaneous tissues was irrigated and reapproximated with 2-0 Vicryl in a running fashion. Skin was closed with 4-0 Vicryl in a subcuticular fashion followed by Dermabond. The procedure was concluded at this point and the patient tolerated the procedure well. All instrument and lap counts were correct. - A at 1 minute: 8 at 5 minutes: 8 Gender: Female
[2019-08-11] MEDS ORDERED: D5W/LACTATED RINGERS 1,000 ML IV SCH (07:00)
[2019-08-11] MEDS: KETOROLAC 30 MG/1 ML INJ IV PRN ×2 (08:59→18:30)
[2019-08-11] MEDS: PRENATAL VIT27-FE FUMARATE-FOLIC ACID VIT TAB PO SCH (10:11)
[2019-08-11 10:44] LABS: Hematocrit 33.7 % (30.3-42.9); Hemoglobin 11.6 gm/dl (10.1-14.3); Lymphocytes # (Auto) 1.9 K/mm3 (1.2-5.4); Mean Corpuscular HGB Conc 34 % (30-34); Mean Corpuscular Volume 92 fl (79-97); Monocytes # (Auto) 0.9 K/mm3 (0.0-0.8); Monocytes % (Auto) 4.9 % (0.0-7.3); Platelet Count 345 K/mm3 (140-440); Red Blood Count 3.66 M/mm3 (3.65-5.03); Red Cell Distribution Width 13.2 % (13.2-15.2)
[2019-08-11] MEDS: oxyCODONE /ACETAMINOPHEN 5-325MG TAB PO PRN ×2 (13:54→20:07)
[2019-08-11 19:20] LABS: Hematocrit 32.1 % (30.3-42.9)
[2019-08-12] MEDS: IBUPROFEN 800 MG TAB PO PRN ×4 (00:27→22:26)
[2019-08-12] MEDS: oxyCODONE /ACETAMINOPHEN 5-325MG TAB PO PRN ×3 (01:49→15:46)
--- NOTE | 2019-08-12 09:35 | Progress Note ---
Assessment and Plan - Patient Problems (1) S/P primary low transverse Current Visit: Yes Status: Acute Plan to address problem: Continue routine PP orders Keep dressing clean and dry, remove on POD2 Anticipate d/c home in 24-48 hrs (2) delivery Current Visit: Yes Status: Acute Subjective - Subjective Date of service: 08/12/19 Principal diagnosis: S/P primary C/S Interval history: See admission H & P; OB operative note and PP progress notes Patient reports: appetite normal, voiding normally, pain well controlled (with medication), flatus, bowel movement, ambulating normally [place]: in NICU Objective - Vital Signs Latest vital signs: Vital Signs Temp Pulse Resp BP BP Pulse Ox 08/12/19 07:54 98.0 F 78 16 132/77 99 08/12/19 05:46 20 08/12/19 01:49 20 08/12/19 00:27 18 08/12/19 00:00 98.6 F 84 16 126/78 08/11/19 20:07 18 08/11/19 18:30 20 08/11/19 18:06 98.5 F 18 L 123/67 08/11/19 13:54 20 08/11/19 13:16 98.3 F 75 18 110/63 98 Intake and Output 08/11/19 08/12/19 08/12/19 23:59 07:59 15:59 Intake Total 200 Output Total 900 Balance -900 200 Intake: Oral 200 Output: Urine 900 Indwelling Catheter 800 Void 100 Other: Total, Intake Amount 200 Total, Output Amount 900 # Voids Void 1 1 - Exam Breasts: Present: normal Cardiovascular: Present: Regular rate Lungs: Present: Normal air movement Abdomen: Present: soft, tenderness Uterus: Present: firm, fundal height below umbilicus (U-2) Extremities: Present: normal Deep Tendon Reflex Grade: Normal +2 Incision: Present: dressed (no shadow drainage or bleeding noted) - Labs Labs: Abnormal lab results 08/11/19 Range/Units 10:23 WBC 19.1 H (4.5-11.0) K/mm3 Lymph % (Auto) 10.0 L (13.4-35.0) % [place] # 0.9 H (0.0-0.8) K/mm3 Seg Neutrophils % 85.1 H (40.0-70.0) % Seg Neutrophils # 16.2 H (1.8-7.7) K/mm3
[2019-08-12] MEDS: PRENATAL VIT27-FE FUMARATE-FOLIC ACID VIT TAB PO SCH (09:40)
--- NOTE | 2019-08-12 14:19 | Post Anesthesia Evaluation ---
- Post Anesthesia Evaluation Patient Participated: Yes Airway Patent: Yes Stable Respiratory Function: Yes Nausea/Vomiting: No Temp > 96.8F: Yes Pain Manageable: Yes Adequeate Hydration: Yes Anesthesia Complications: No Block Receding Appropriately: Yes Patient on Ventilator: No
[2019-08-13] MEDS: IBUPROFEN 800 MG TAB PO PRN ×2 (04:21→18:20)
[2019-08-13] MEDS: oxyCODONE /ACETAMINOPHEN 5-325MG TAB PO PRN ×4 (04:25→20:15)
[2019-08-13] MEDS: PRENATAL VIT27-FE FUMARATE-FOLIC ACID VIT TAB PO SCH (10:25)
--- NOTE | 2019-08-13 10:25 | Progress Note ---
Assessment and Plan A: POD #2 Stable P: Follow Routine PostOP Orders D/C Home in the AM RTO in One Week Subjective - Subjective Date of service: 08/13/19 Principal diagnosis: S/P primary C/S Patient reports: appetite normal, voiding normally, pain well controlled, flatus, bowel movement, ambulating normally [place]: in NICU, bottle feeding (Pumping as well) Objective - Vital Signs Latest vital signs: Vital Signs Temp Pulse Resp BP BP Pulse Ox 08/13/19 08:10 99 F 88 20 127/84 08/13/19 00:00 98.4 F 66 18 104/78 08/12/19 16:07 98.3 F 97 H 20 110/60 100 Intake and Output 08/12/19 08/13/19 08/13/19 22:59 06:59 14:59 Intake Total 780 500 120 Balance 780 500 120 Intake: Oral 480 200 120 Intake, Free Water 300 300 Other: Total, Intake Amount 480 200 120 # Voids Void 1 1 1 - Exam Breasts: Present: normal Cardiovascular: Present: Regular rate Lungs: Present: Clear to auscultation, Normal air movement Abdomen: Present: normal appearance, soft, normal bowel sounds Uterus: Present: normal, firm, fundal height below umbilicus Extremities: Present: normal Incision: Present: normal, dry, intact
--- NOTE | 2019-08-13 10:27 | Discharge Summary ---
Providers - Providers Date of Admission: 08/11/19 04:48 Date of discharge: 08/14/19 Attending physician: MEGHNA LANDAVERDE 08/08/19 16:52 Consult to Physician [CONS] Routine Comment: Consulting Provider: DONELL AVERY Physician Instructions: Reason For Exam: AMA, +NIPT for Trisomy 21, Cardiac Defects 08/10/19 16:12 Consult to Physician [CONS] Urgent Comment: Consulting Provider: COLTON BUTT Physician Instructions: Reason For Exam: FHR decelerations; gestation; heart defect Primary care physician: MEGHNA LANDAVERDE Hospitalization Reason for admission: observation Delivery: Procedure: primary low transverse Episiotomy: none Laceration: none Incision: normal, dry, intact Other procedures: none complications: none Discharge diagnosis: IUP at term delivered baby: female Condition at discharge: Good Disposition: DC-01 TO HOME OR SELFCARE Plan - Discharge Medications Prescriptions: Ibuprofen [Motrin 800 MG tab] 800 mg PO Q6H PRN #30 tablet PRN Reason: Pain, Mild (1-3) oxyCODONE /ACETAMINOPHEN [Percocet 5/325 mg] 1 tab PO Q6H PRN #30 tablet PRN Reason: Pain, Moderate (4-6) - Provider Discharge Summary Activity: routine, no sex for 6 weeks, no heavy lifting 4 weeks, no strenuous exercise Diet: routine Instructions: routine Additional instructions: [] Smoking cessation referral if applicable(refer to patient education folder for contact #) [] Refer to [facility]'s [facility] Booklet Call your doctor immediately for: * Fever > 100.5 * Heavy vaginal bleeding ( >1 pad per hour) * Severe persistent headache * Shortness of breath * Reddened, hot, painful area to leg or breast * Drainage or odor from incision. * Keep incision clean and dry at all times and follow doctor's instructions regarding bathing/showering - Follow up plan Follow up: MEGHNA LANDAVERDE MD [Primary Care Provider] - 7 Days
[2019-08-14] MEDS: oxyCODONE /ACETAMINOPHEN 5-325MG TAB PO PRN (08:27)
[2019-08-14] MEDS: PRENATAL VIT27-FE FUMARATE-FOLIC ACID VIT TAB PO SCH (11:04)
[2019-08-14 12:33] VITALS: BP 118/71
[2019-08-14] MEDS: IBUPROFEN 800 MG TAB PO PRN (13:02)
== END 2019-08-14 14:39 | disposition home or self-care (01) | DRG 765 ==
LOC: TRG 10:41 → LD 10:43 → TRG 08-09 21:04 → LD 08-11 04:48 → OB 08-11 08:45
PROVIDERS: ADMIT Obstetrics & Gynecology; ATTEND Obstetrics & Gynecology
PROC: 10D00Z1 Extraction of Products of Conception, Low, Open Approach (ICD-10-PCS; principal; 2019-08-11)
DX: O76 Abnormality in fetal heart rate and rhythm complicating labor and delivery (principal); O60.14X0 Preterm labor third trimester with preterm delivery third trimester, not applicable or unspecified; O36.5930 Maternal care for other known or suspected poor fetal growth, third trimester, not applicable or unspecified; Z3A.35 35 weeks gestation of pregnancy; Z37.0 Single live birth
CPT/HCPCS: 36415; 76819; 85014; 85018; 85025; 86850; 86900; 86901; 88307; G0378; C1765; J0690; J0702; J1100; J1200; J1885; J2370; J2405; J2590; J2765; J7030; J7120; J7121